=== PATIENT | female | born 1975 | race Caucasian/White ===

== ENCOUNTER 2018-11-13 09:10 | Outpatient (CLI) | payer OTHER | END 2018-11-13 23:59 | disposition home or self-care (01) | LOC: RAD 09:10 | PROVIDERS: ATTEND Urology | DX: N20.0 Calculus of kidney (principal) | CPT/HCPCS: 76770 ==

== ENCOUNTER → 2020-02-17 | Outpatient (CLI) | payer OTHER | END | disposition home or self-care (01) | LOC: CFH 14:26 | PROVIDERS: ATTEND Specialist | DX: Z12.31 Encounter for screening mammogram for malignant neoplasm of breast (principal) | CPT/HCPCS: 77063; 77067 ==

== ENCOUNTER → 2020-06-19 | Outpatient (CLI) | payer OTHER | END | disposition home or self-care (01) | LOC: CFH 11:47 | PROVIDERS: ATTEND Physician Assistant | DX: Z87.442 Personal history of urinary calculi (principal) | CPT/HCPCS: 74018 ==